=== PATIENT | female | born 1960 | race Hispanic/Latino ===

== ENCOUNTER → 2019-03-27 | Outpatient (CLI) | payer BC ==
[~2019-03-27] MED LIST: DIATRIZOATE MEGL/DIATRIZOA SOD 30 ML BTL PO ONE; FISH OIL PO; IOPAMIDOL 370 MG/ML 200 ML INFUS..BTL INJ ONE; PROTONIX40 MG/ML PO; SODIUM CHLORIDE 0.9% 50ML 50 ML ONE
--- NOTE | 2019-03-27 16:09 | Diagnostic Imaging Report ---
CT of the abdomen and pelvis, with contrast. History: Left lower quadrant abdominal pain. Comparison: None available. Technique: Multidetector CT scanning of the abdomen and pelvis was performed from the level of the lung bases to the inferior pubic rami after intravenous contrast. Coronal and sagittal multiplanar reformations were obtained. RADIATION DOSE: Total DLP: 162.85 mGy*cm Dose modulation, iterative reconstruction, and/or weight based adjustment of the mA/kV was utilized to reduce the radiation dose to as low as reasonably achievable. Findings: The lung bases are clear. The imaged portion of the heart demonstrates no significant abnormalities. The liver is normal in size and attenuation without evidence for focal abnormality. The gallbladder is unremarkable. There is no biliary ductal dilatation. The stomach, spleen, pancreas, and bilateral adrenal glands are unremarkable. The kidneys are normal in size and location and concentrate contrast material properly. There is no evidence for hydronephrosis. The ureters are normal course and caliber. The urinary bladder demonstrates no significant abnormalities. The uterus is not visualized and may be surgically absent. There is a 1.7 x 1.5 cm left adnexal cystic structure identified which is almost certainly benign. No follow-up is warranted. The abdominal aorta is normal in course and caliber. The IVC appears unremarkable. Please note evaluation the bowel is limited without the use of enteric contrast material. There is wall thickening and prominent adjacent inflammatory change identified about the sigmoid colon in a region of diverticula compatible with acute diverticulitis. There is no evidence for bowel obstruction, perforation, or abscess formation. There is no ascites or intraperitoneal free air. No abnormally enlarged lymph nodes are identified within the abdomen or pelvis. The osseous structures demonstrate no evidence for acute fracture or destructive process. The extra peritoneal soft tissues are unremarkable. IMPRESSION: CT findings compatible with acute, uncomplicated diverticulitis involving the sigmoid colon. No evidence for bowel obstruction, perforation, or abscess formation. Signed by: Dr. Chago Mchugh MD on 03/27/2019 4:05 PM
== END ==
LOC: CT 14:07
PROVIDERS: ATTEND Family Medicine
DX: K57.32 Diverticulitis of large intestine without perforation or abscess without bleeding (principal)
CPT/HCPCS: 74177; Q9967